=== PATIENT | female | born 1965 | race American Indian/Alaskan Native ===

== ENCOUNTER 2021-11-01 17:03 | Emergency (ER) | payer SELFPAY ==
[2021-11-01] MEDS ORDERED: metroNIDAZOLE 500 MG TAB PO ONE (21:49)
--- NOTE | 2021-11-01 22:02 | Emergency Department Report ---
ED Female HPI - General Chief complaint: Abdominal Pain Stated complaint: VAGINAL DISCHARGE, THRASH TONGUE Time Seen by Provider: 11/01/21 21:48 Source: patient Mode of arrival: Ambulatory Limitations: No Limitations - History of Present Illness Initial comments: Patient 55-year-old female who is nonsexually active with history of recurrent BV who presents for vaginal itching and white discharge malodorous for the past 3 days. Patient denies fevers or chills no pelvic pain no vaginal bleeding no nausea or vomiting. Symptoms are exacerbated by voiding and scratching. Symptoms are relieved by nothing tried. Patient advised this is normal course for BV symptoms. Symptoms generally treated with Flagyl vaginal gel. Patient denies other complaints. There is no open sores lesions no concern for STI no history of HSV or HIV. MD Complaint: vaginal discharge - Related Data Previous Rx's Medication Instructions Recorded Last Taken Type cephALEXin [Keflex] 500 mg PO BID 7 Days #14 cap 11/01/21 Unknown Rx metroNIDAZOLE [Flagyl] 500 mg PO BID 7 Days #14 tab 11/01/21 Unknown Rx Allergies Allergy/AdvReac Type Severity Reaction Status Date / Time Penicillins Allergy Unknown Verified 11/01/21 17:30 prochlorperazine Allergy Unknown Verified 11/01/21 17:30 [From Compazine] ED Review of Systems ROS: Stated complaint: VAGINAL DISCHARGE, THRASH TONGUE Other details as noted in HPI Constitutional: denies: chills, fever Eyes: denies: eye pain, eye discharge, vision change ENT: denies: ear pain, throat pain Respiratory: denies: cough, shortness of breath, wheezing Cardiovascular: denies: chest pain, palpitations Endocrine: no symptoms reported Gastrointestinal: denies: abdominal pain, nausea, vomiting, diarrhea Genitourinary: urgency, dysuria, frequency, discharge (White thick malodorous). denies: hematuria Musculoskeletal: denies: back pain, joint swelling, arthralgia Skin: denies: rash, lesions Neurological: denies: headache, weakness, paresthesias Psychiatric: denies: anxiety, depression Hematological/Lymphatic: denies: easy bleeding, easy bruising ED Past Medical Hx - Medications Home Medications: Home Medications Medication Instructions Recorded Confirmed Last Taken Type cephALEXin [Keflex] 500 mg PO BID 7 Days #14 cap 11/01/21 Unknown Rx metroNIDAZOLE [Flagyl] 500 mg PO BID 7 Days #14 tab 11/01/21 Unknown Rx ED Physical Exam - General Limitations: No Limitations General appearance: alert, in no apparent distress - Head Head exam: Present: normocephalic, normal inspection - Eye Eye exam: Present: EOMI Pupils: Present: normal accommodation - ENT ENT exam: Present: mucous membranes moist - Neck Neck exam: Present: normal inspection, full ROM. Absent: tenderness - Respiratory Respiratory exam: Present: normal lung sounds bilaterally. Absent: respiratory distress, wheezes - Cardiovascular Cardiovascular Exam: Present: regular rate, normal rhythm, normal heart sounds. Absent: systolic murmur, diastolic murmur, rubs, gallop - GI/Abdominal GI/Abdominal exam: Present: soft, normal bowel sounds. Absent: distended, tenderness, guarding, rebound, rigid, bruit, hernia - Rectal Rectal exam: Present: deferred - Extremities Exam Extremities exam: Present: normal inspection, full ROM. Absent: tenderness - Back Exam Back exam: Present: normal inspection, full ROM. Absent: CVA tenderness (R), CVA tenderness (L) - Neurological Exam Neurological exam: Present: alert, oriented X3 - Psychiatric Psychiatric exam: Present: normal affect, normal mood - Skin Skin exam: Present: warm, dry, intact, normal color. Absent: rash ED Course Vital Signs 11/01/21 17:28 Temperature 98.8 F Pulse Rate 96 H Respiratory 20 Rate Blood Pressure 175/89 [Left] O2 Sat by Pulse 100 Oximetry ED Medical Decision Making - Lab Data Labs 11/01/21 Unknown Urine Color Yellow Urine Turbidity Clear Specific [place] (Man) 1.020 Ur Protein (Man) Negative Ur Ketones (Man) Negative Ur Nitrite (Man) Negative Ur Reducing Substances Not Reportable Urine Bilirubin (Man) Negative Urine Ictotest Not Reportable Leukocyte Esterase (Man) Negative Urine WBC (Auto) < 1.0 Urine RBC (Auto) 1.0 U Epithel Cells (Auto) < 1.0 Urine RBC (Manual) 1+ Urine Mucus Few - Medical Decision Making UA noted above plan DC to home with prescriptions, follow-up with [facility] in 2 to 3 days. Return to emergency department should symptoms worsen. Patient advised not to drink alcohol with Flagyl. Critical care attestation.: If time is entered above; I have spent that time in minutes in the direct care of this critically ill patient, excluding procedure time. ED Disposition Clinical Impression: Vaginitis Qualifiers: Chronicity: acute Qualified Code(s): N76.0 - Acute vaginitis Disposition: HOME / SELF CARE / HOMELESS Is pt being admited?: No Does the pt Need Aspirin: No Condition: Stable Instructions: Abdominal Pain (ED), Atrophic Vaginitis Additional Instructions: Take medications as prescribed, follow-up with gynecology in 2 to 3 days. Return to emergency department should symptoms worsen Prescriptions: metroNIDAZOLE [Flagyl] 500 mg PO BID 7 Days #14 tab cephALEXin [Keflex] 500 mg PO BID 7 Days #14 cap Referrals: LEO HOWELL MD [Staff Physician] - 3-5 Days Forms: Work/School Release Form(ED) Time of Disposition: 23:17
[2021-11-01 22:09] LABS: Mucus,Urine FEW /HPF; WBC,Urine < 1.0 /HPF (0.0-6.0)
[2021-11-01 22:21] LABS: Color,Urine Yellow (Yellow)
[2021-11-02 00:13] VITALS: BP 174/98
== END 2021-11-01 23:45 | disposition home or self-care (01) ==
LOC: ED 17:03
DX: N76.0 Acute vaginitis (principal); Z88.0 Allergy status to penicillin; Z91.09 Other allergy status, other than to drugs and biological substances
CPT/HCPCS: 81001; 99283